=== PATIENT | female | born 1995 | race Caucasian/White ===

== ENCOUNTER → 2018-11-18 | Emergency (ER) | payer BC, OTHER ==
[~2018-11-18] VITALS: Ht 170.2 cm; Wt 96.6 kg
[~2018-11-18] MED LIST: AUGMENTIN 875-1 EACH PO; DOCUSATE SODIU100 MG PO; IBU800 MG PO; IRON325 M1 PO; NORCO 5-325 TA1 EACH PO
== END ==
LOC: ED 22:26
DX: O99.89 Other specified diseases and conditions complicating pregnancy, childbirth and the puerperium (principal); R10.2 Pelvic and perineal pain; Z79.899 Other long term (current) drug therapy
CPT/HCPCS: 72193; 74177; 80053; 81001; 83605; 83690; 85025; 87040; 99284-25; J1170; J2405; J7030; Q9967

== ENCOUNTER 2018-11-21 11:51 | Inpatient (IN) | payer BC, OTHER ==
[~2018-11-21] VITALS: Ht 170.2 cm; Wt 96.6 kg
--- NOTE | ~2018-11-21 | HP ---
[facility] [address], [place] [address] Draft ADMISSION DATE: 11/21/2018 CHIEF COMPLAINT: Uterine tenderness and malodorous discharge. HISTORY OF PRESENT ILLNESS: Ms. Ortiz is a pleasant 22-year-old, G3, P3-0-0-3, white female, who presented to my office following a visit to the ER. She delivered a viable female on 11/10/2018 in [place], [place]. and delivery were unremarkable per patient. She underwent tubal ligation the following day and reports having intraabdominal bleeding and the patient was taken back for exploratory laparotomy and evacuation of hemoperitoneum emergently in the middle of the following night. She states that she had approximately 1 liter of blood in the abdomen and the bleeding was corrected. She was then discharged home with further incident. The patient then continued to have fairly consistent abdominal pain. She had no lightheadedness, dizziness, or fevers. She called her OB, whose showroom sales assistant called her back and recommended to try and get heating pad to her abdomen. After continued improvement, the patient became frustrated and came to the [facility] ED. A CT was performed that showed a small to moderate amount of fluid, likely blood in the abdomen approximately [address] with contrast showed no active extravasation. In the ER, the hemoglobin was 12.9. The ER physician called and reviewed the case with me and reported that she had some mild uterine tenderness, but no leukocytosis and had a low-grade fever that resolved in the ER. The patient followed up with me the next day for further evaluation. In my office, the patient reports that she is afebrile. She reports that she has had new onset malodorous vaginal discharge. She reports "smells like itself." Her bleeding is scant. She continues to breast feed without difficulty. She denies lightheadedness or dizziness. She reports that her abdominal pain is 6 to 8/10 and nothing seems to make it better or worse. The pain is not improved with discharge medications, ibuprofen and Dana. CURRENT MEDICATIONS: 1. Dana 5/325 one tablet p.o. q.6 hours p.r.n. 2. Ibuprofen 800 mg t.i.d. p.r.n. pain. 3. Ferrous sulfate 325 mg daily. 4. Docusate. MEDICAL HISTORY: 1. Acute blood loss anemia. 2. Headaches. ALLERGIES: No known drug allergies. PATIENT NAME: Doorthy ORTIZ HISTORY AND PHYSICAL DATE OF : [birth year] REPORT #: [id number] PHYSICIAN: TANIA DAMON DO PCP: JAMES MORRIS DO REPORT IS CONFIDENTIAL AND NOT TO BE RELEASED WITHOUT AUTHORIZATION [facility] [address], [place] [address] Draft POLYSOMNOGRAPHY TECHNOLOGIST HISTORY: Currently sexually active. Using tubal for ligation. OB HISTORY: She is a G3, P3-0-0-3. SURGICAL HISTORY: tubal ligation with followup exploratory laparotomy for hemoperitoneum and correction of bleeding. FAMILY HISTORY: Grandmother with breast cancer in her elderly age. SOCIAL HISTORY: The patient is a nonsmoker and does not drink alcohol. No recreational or drug use. She denies history of STDs. REVIEW OF SYSTEMS: A complete review of systems was performed, negative except per HPI. PHYSICAL EXAMINATION: VITAL SIGNS: Height 67 inches, weight 216 pounds, BMI of 33.9. Temperature 98.6, pulse 106, blood pressure 124/62, respiratory rate 18, O2 saturation 98%. GENERAL: The patient is alert and cooperative, oriented, in no distress. She is here with her stepmother and , who is in good apparent health. SKIN: [place], warm, and dry. No acute rash on exposed skin. HEENT: Normocephalic and atraumatic. CHEST: Normal shape and expansion of apparent dyspnea. HEART: Regular rate and rhythm. LUNGS: Clear to auscultation bilaterally. ABDOMEN: Soft and nondistended. No hepatomegaly or splenomegaly. No obvious masses other than fundus. No abdominal hernia noted. The fundus is U minus 3, but exquisitely tender to the touch. No rebound or significant abdominal tenderness elsewhere in the abdomen. BACK: Normal range of motion. SPINE: No CVA tenderness. FEMALE GENITALIA: Normal external genitalia, labia, and vagina. The cervix was slightly open with dark malodorous lochia noted. The uterus is extremely tender to bimanual exam. The adnexa are nontender and no adnexal masses noted. The bladder is mildly tender. EXTREMITIES: No edema. PATIENT NAME: Dorothy ORTIZ HISTORY AND PHYSICAL DATE OF : [birth year] REPORT #: [id number] PHYSICIAN: TANIA DAMON DO PCP: JAMES MORRIS DO REPORT IS CONFIDENTIAL AND NOT TO BE RELEASED WITHOUT AUTHORIZATION [address] [address] [place] LABORATORY DATA: Reviewed labs and imaging from the ER visit on 11/18. Her hemoglobin was 12.9, platelets 209, WBCs 8.0. Urine was normal. CMP shows normal creatinine of 0.46. Normal liver enzymes. Lactic acid was 0.5. ASSESSMENT AND PLAN: endometritis. The patient with symptoms of endometritis diagnosed by malodorous discharge and exquisite uterine tenderness. She does not appear to be septic. We discussed inpatient versus outpatient management of endometritis and given severe uterine tenderness, I strongly recommend admission for IV antibiotics. The patient understands and agrees. We will continue IV antibiotics until 24 hours after the uterine tenderness has resolved. We reviewed multiple treatment regimens for endometriosis and will treat with clindamycin and gentamicin. We will treat pain with IV Dilaudid, ibuprofen, Dana, and Tylenol. The patient will start on clears and advance diet tomorrow if she is doing well. We will perform VTE prevention with daily Lovenox and SCDs. The patient received blood and urine cultures prior to antibiotic therapy. We will perform a CBC and CMP on admission and CBC in the a.m. Reviewed with the patient and family. All questions answered to the best my ability and to the patient's apparent satisfaction. Tania Damon DO JHEIDI/LIDA /[id number] Copies: ~ PATIENT NAME: Dorothy ORTIZ HISTORY AND PHYSICAL DATE OF : [birth year] REPORT #: [id number] PHYSICIAN: TANIA DAMON DO PCP: JAMES MORRIS DO REPORT IS CONFIDENTIAL AND NOT TO BE RELEASED WITHOUT AUTHORIZATION
[~2018-11-21 11:51] MED LIST changes: -AUGMENTIN 875-1 EACH PO; -IBU800 MG PO
--- NOTE | 2018-11-21 12:45 | NUR ---
PT ARRIVED FOR DIRECT ADMIT FROM DR. LAMBERT'S OFFICE. INTAKE ASSESSMENT DONE. PIV STARTED PER PROTOCOL. BRISK BLOOD RETURN NOTED WITH IV START. IV FLUIDS STARTED. MEDICATIONS GIVEN. PHARMACY CALLED TO NOTIFY PHARAMIST THAT PT IS BREAST FEEDING. PT REPORTS 7/10 PAIN. SEE MAR FOR MEDICACTION GIVEN. LAB TO BEDSIDE FOR LAB DRAW. PT RESTING IN BED. PT DEMONSTRATES USE OF CALL LIGHT. BED RAILS UP. FAMILY AT BEDSIDE CARING FOR INFANT WHO IS ALSO AT BEDSIDE. BROTH, JUICE AND JELLO PROVIDED. NO ADDITIONAL REQUESTS OR COMPLAINTS AT THIS TIME.
--- NOTE | 2018-11-21 15:18 | NUR ---
SPOKE TO MILVIA NUNEZ, KONRAD MERCADO RN, AUGUSTINE YAÑEZ RN AND JULES ABDULLAHI REGARDING POLICIES AND [facility] PRACTICE REGARDING PT AND HER 3 WEEK OLD BABY STAYING IN ROOM. THEN DISCUSSED WITH PT HOSPITAL POLICY OF ANOTHER ADULT STAYING IN ROOM AT ALL TIMES WITH INFANT. TOLD IF THE ADULT LEAVES THE BABY NEEDS TO LEAVE WITH THEM. ALSO DISCUSSED USE OF BASSINET FROM FB AND HOSPITAL NOT BEING LIABLE. TALKED ABOUT THE HOSPITAL TAKING CARE OF SICK PATIENTS AND THE RISK OF BABY BEING EXPOSED TO "GERMS". PT STATED THAT BABY IS EXCLUSIVLY BREAST FED AND WANTS TO KEEP HER IN THE HOSPITAL. INFORMED THAT WE HAVE A FORM FOR HER TO SIGN REITERATING OUR CONVERSATION. PT AND MOTHER IN LAW VERBALIZED UNDERSTANDING.
--- NOTE | 2018-11-21 15:59 | NUR ---
EXPLAINED AGAIN THE RISKS OF HAVING THE BABY IN THE HOSPITAL AND HAD THE PT AND HER SIGN THE FORM. PLACED ON CHART. PT DECLINED A COPY.
--- NOTE | 2018-11-21 16:50 | NUR ---
THIS RN TO ROOM TO CHECK ON PT. PT REPORTS 4/10 PAIN AND DENIES NEED FOR ADDITIONAL MEDICATION AT THIS TIME. WATER REFILLED, NEW JUICE PROVIDED. NO ADDITIONAL REQUESTS OR COMPLAINTS AT THIS TIME. CALL LIGHT WITHIN REACH.
--- NOTE | 2018-11-21 17:34 | NUR ---
AFTERNOON ASSESSMENT DUE. PT RESTING IN BED WITH BABY IN ARMS. PT REPORTS 5/10 PAIN THAT "IS LIKE CONTRACTIONS." SEE MAR FOR MEDICATION GIVEN. PT UP TO RESTROOM, VOIDS 900ML WITHOUT ISSUE. PT REPORTS SHE STILL HAS OCCATIONAL BLEEDING, MAY PAD IN PLACE. SCD'S APPLIED. ASSESSMENT DONE. SURGICAL SITE C/D/I, EDGES APROXIMATED. WARM PACK PROVIDED FOR PTS ABDOMEN, EDUCATION DONE REGARDING KEEPING WARM PACK AWAY FROM BABY. PT VERBALIZES UNDERSTANDING. BABY IN FATHERS AMRS. WATER, JELLO, JUICE AND BROTH PROVIDED. NO ADDITIONAL REQUESTS OR COMPLAINTS AT THIS TIME. BED RAILS UP. CALL LIGHT WITHIN REACH.
--- NOTE | 2018-11-21 18:25 | NUR ---
PT DIRECT ADMIT TODAY FOR UTERIN INFECTION. PT DELIVERED NEW BABY ON 11/10/18 AND CONTINUES TO BREAST FEED, PHARAMCY AWARE. PRN PAIN MEDICATIONS GIVEN TODAY FOR 4-10 UTERIN PAIN. PT HAS SMALL AMOUNT OF BLEEDING SINCE DELIVERY, MAY PAD IN PLACE. PT TOLEARTING CLEAR LIQUID DIET, DENIES NAUSEA. VOIDING QUANTITY SUFFICIENT. PT USES CALL LIGHT APPROPRIATLY.
--- NOTE | 2018-11-21 18:31 | NUR ---
THIS RN TO ROOM TO CHECK ON PT. PT REPORTS 0/10 PAIN "UNTIL IT CRAMPS" WHEN "IT COMES ON PRETTY GOOD BUT GOES AWAY." PT STATES THE HEAT PACK IS "REALLY HELPING." NO ADDITIONAL REQUESTS OR COMPLAINTS. BED RAILS UP. CALL LIGHT WITHIN REACH. AT BEDSIDE.
--- NOTE | 2018-11-21 19:15 | NUR ---
RECEIVED REPORT FROM DAY SHIFT RN. PATIENT IS RESTING IN BED BREAS FEEDING BABY AT THIS TIME. PATIENT DENIES ANY NEEDS. CALL LIGHT IN REACH.
--- NOTE | 2018-11-21 22:15 | NUR ---
PATIENT ASSESMENT COMPLETED. PATIENTS ABD IS TENDER AND SOFT. PATIENT RATES PAIN AT A 7/10. PRN PAIN MEDICATION GIVEN PER ORDER. PATIENTS EVENING MEDICATIONS GIVEN PER ORDER. IV INFUSING. PATIENT IS RESTING IN BED BABY AT THIS TIME. PATIENT DENIES ANY NEEDS. ICE WATER REFILLED FOR PAITENT AD . AT THE BEDSIDE AND ATTENTIVE TO PATIENT AND BABY. CALL LIGHT IN REACH.
--- NOTE | 2018-11-21 23:48 | NUR ---
PATIENTS PAIN REEVALUATED. PATIENT RATES PAIN AT A 3/10. PATIENT DENIES THE NEED FOR PAIN MEDICATION AT THIS TIME. NO NEEDS NOTED. CALL LIGHT IN REACH.
--- NOTE | 2018-11-22 02:36 | NUR ---
PATIENTS VITALS TAKEN AND RECORDED. INTAKE AND OUPTUT RECORDED. PATIENT RATES PAIN AT A 4/10. PRN MOTRIN GIVEN PER ORDER. PATIENT DENIES ANY FURTHER NEEDS. CALL LIGHT IN REACH.
--- NOTE | 2018-11-22 04:44 | NUR ---
PATIENT IS RESTING IN BED WITH EYES CLOSED. RR 18. CALL LIGHT IN REACH.
--- NOTE | 2018-11-22 04:52 | NUR ---
PATIENT RESTED WELL TTHROUGHOUT THE SHIFT. PATIENT IS ON A CLEAR DIET, TOLERATING IT WELL, AND NO COMPLAINTS OF NAUSEA. PATIENT HAS SCDS IN PLACE. INDEPENDENT IN THE ROOM. PATIENT RECEIVED PRN PAIN MEDICATION X2. PATIENTS ABD IS TENDER BUT SOFT. PATIENT HAS A PERIPAD IN PLACE, SMALL AMOUNT OF BLOOD ON PAD NOTED. PATIENT HAS BEEN PASSING GAS. PATIENT HAS BABY IN THE ROOM. PRESENT AND ATTENTIVE TO PATIENT AND 1 MONTH OLD BABY. PATIENT IS AAOX3 AND USE CALL LIGHT APPROPRAITELY. URINE OUPUT QS.
--- NOTE | 2018-11-22 06:45 | NUR ---
PATIENTS MORNING MEDCATIONS GIVEN PER ORDER. PATIENT RATES PAIN AT A 6/10. PATIENT GIVEN PRN PAIN MEDICATION PER ORDER. PATIENT UP TO THE RESTROOM. PATIENT WAS ABLE TO VOID. PATIENT IS RESTING IN BED SCDS IN PLACE. PATIENT IS BF BABY AT THIS TIME. PATIENT DENIES ANY FURTHER NEEDS. CATERING TRUCK DRIVER IN ROOM. CALL LIGHT IN REACH. ICE WATER REFILLED.
--- NOTE | 2018-11-22 07:25 | NUR ---
REPORT RECEIVED FROM ENRIQUE BURDEN. PT RESTING WITH EYES CLOSED, BABY IN ARMS, AT BEDSIDE. BED RAILS UP. CALL LIGHT WITHIN REACH.
--- NOTE | 2018-11-22 08:50 | NUR ---
MORNING ASSESSMENT AND MEDICATIONS DUE. THIS RN TO BEDSIDE. PT AWAKE IN BED PLAYING ON PHONE. PT REPORTS 5/10 PAIN THAT "COMES AND GOES." SEE MAR FOR MEDICATION GIVEN. ASSESSMENT DONE. PT REPORTS NO BM'S FOR 2 DAYS NOW. BISACODYL SUPP. OFFERED, PT REFUESES. ABDOMEN TENDER, HYPOACTIVE BOWEL TONES. PT REQUESTS "REAL FOOD." EDUCATION DONE R/T CLEAR LIQUID DIET. PT VERBALIZES UNDERSTANDING AND IS WILLING TO WAIT TO TALK WITH MD. BED RAILS UP, CALL LIGHT WITHIN REACH. AT BEDSIDE.
--- NOTE | 2018-11-22 10:23 | NUR ---
THIS RN TO ROOM TO CHECK ON PT. PT WATCHING TV AND PLAYING ON PHONE. PT REPORTS 4/10 PAIN THAT IS TOLEARABLE AND DENIES NEED FOR ADDITIONAL PAIN MEDICATION. DIET UP GRADED TO FULL LIQUID, ENSURE MILK[place]KE PROVIDED. PT TOELARTING WELL. BED RAILS UP. CALL LIGHT WITHIN REACH. AT BEDSIDE.
--- NOTE | 2018-11-22 12:03 | NUR ---
NOON ASSESSMENT DUE. THIS RN TO BEDSIDE. PT REPORTS 4/10 PAIN AND DENIES NEED FOR PAIN MEDICATION AT THIS TIME. PT EATING SHERBERT BUT REFUSES OTHER FOOD FROM FULL LIQUID TRY STATING "I JUST WANT YI FRIES AND WINGS INSTEAD." ALTERNATIVE FOODS OFFERED TO PT. PT ACCEPTS APPLESAUSE AND CHOCOLATE MILK. NUTRITION EDUCATION DONE WITH PT. PT VOIDING QUANTITY SUFFICIENT. PT REPORTS DECREASED RED DRAINAGE FROM UTERUS STATING "ALL LAST NIGHT I'VE ONLY HAD JUST A DROP ON MY PAD." PT DENIES ADDITIONAL REQUESTS OR COMPLAINTS. BED RAILS UP. CALL LIGHT WITHIN REACH. FAMILY AT BEDSIDE.
--- NOTE | 2018-11-22 13:08 | NUR ---
THIS RN INFORMED BY AIRLINE OPERATIONS AGENT THAT PT REQUESTS PAIN MEDICAITON. THIS RN TO ROOM. PT FINISHED WITH SHOWER. PT BACK TO BED. PT REPORTS 6/10 PAIN. SEE MAR FOR MEDICAITON GIVEN. IV ABX STARTED. IV FLUIDS RESUMED. PT RESTING IN BED. NO ADDITIONAL REQUESTS OR COMPLAINTS. CALL LIGHT WITHIN REACH. AT BEDSIDE WITH BABY.
--- NOTE | 2018-11-22 15:10 | NUR ---
THIS RN TO ROOM TO CHECK ON PT. PT RESTING IN BED, WORKING WITH BABY. PT EATING PUDDING AND CRACKERS, UNSURE WHAT TO ORDER FOR DINNER AT THIS TIME. PT REPORTS 4/10 PAIN AND DENIES NEED FOR ADDITIONAL PAIN MEDICATION AT THIS TIME. BED RAILS UP. CALL LIGHT WITHIN REACH.
--- NOTE | 2018-11-22 17:35 | NUR ---
AFTERNOON ASSESSMENT DUE. THIS RN TO BEDSIDE. PT RESTING IN BED. BABY WITH DAD, GONE TO GET DINNER. PT REPORTS 5/10 PAIN. SEE MAR FOR MEDICATION GIVEN. ASSESSMENT DONE. BOWEL TONES NOTED. DINNER ORDER PLACED FOR PT. PT DENIES ADDITIONAL REQUESTS OR COMPLAINTS. CALL LIGHT WITHIN REACH. WATER AND APPLE JUICE PROVIDED.
--- NOTE | 2018-11-22 18:40 | NUR ---
THIS RN TO ROOM TO CHECK ON PT. PT REPORTS 7/10 PAIN. SEE MAR FOR MEDICAITON GIVEN. MD TO ROOM FOR ROUNDS. PT REQUESTS BREAST PUMP, PROVIDED REQUESTED PT EATING DINNER. NO ADDITIONAL REQUESTS OR COMPLAINTS AT THIS TIME.
--- NOTE | 2018-11-22 19:02 | NUR ---
PT HERE FUR UTERIN INFECTION. PAIN 4-04/19 TODAY, PRN PAIN MEDICATIONS GIVEN. PT UP TO SHOWER TODAY. LESS DRAINAGE NOTED ON MAY PAD. PT REPORTS "FEELING BETTER TODAY." DENIES NAUSEA. DIET ADVANCED TO REGULAR. PRN MILK OF MAGNESIUM GIVEN. ENCOURAGE PT TO TAKE SUPPOSITORY, HAS DECLINED THIS SHIFT. LR AT 75ML/HR INFUSING. IV ABX GIVEN. PT USES CALL LIGHT APPROPRIATLY.
--- NOTE | 2018-11-22 19:10 | NUR ---
RECEIVED REPORT FROM DAY SHIFT RN. DISCUSSED BOWEL CARE WITH PATIENT. PATIENT IS AGGREABLE TO A SUPPOSITORY. PATIENT DENIES ANY PAIN. PATIENT DENIES ANY NEEDS. CALL LIGHT IN REACH.
--- NOTE | 2018-11-22 19:25 | NUR ---
CHARGE ROUNDING DONE WITH DAY SHIFT CHARGE AND ANKUR RN. PRIMARY RN IN ROOM FOR REPORT.
--- NOTE | 2018-11-22 21:30 | NUR ---
PATIENT ASSESMENT COMPLETED. PATIENT RATES PAIN AT A 2/10. PATIENT DENIES ANY NEED FOR PAIN MEDICATION AT THIS TIME. PATIENTS ABD IS TENDER AND SOFT. PATIENT STATED "IT IS LESS SORE TONIGHT". PATIENTS EVENING MEDICATIONS GIVEN PER ORDER. PATIENT GIVEN SUPPOSITORY PER ORDER. PATIENT EDUCATED TO ALERT STAFF WHEN SHE HAS A BM. PATIENT VERBALIZES UNDERSTANDING. PATIENT DENIES ANY NEEDS AT THIS TIME. CALL LIGHT IN REACH.
--- NOTE | 2018-11-22 22:40 | NUR ---
PATIENT ALERTED STAFF THAT SHE HAD A BM. PATIENTS BM WAS LARGE AND LOOSE. PATIENT HAD NO PAIN WITH BM. PATIENT STATED "IT TOOK FOR EVER TO COME OUT AND JUST KEPT COMING". PATIENT ALSO STATED "I FEEL SOME RELIEF IN PRESSURE". PATIENT RATES PAIN AT A 1/10. PATIENT DENIES ANY NEEDS. SCDS IN PLACE. CALL LIGHT IN REACH.
--- NOTE | 2018-11-23 00:38 | NUR ---
PATIENT IS RESTING IN BED WITH BABY. PATIENT APPEARS TO BE SLEEPING. RR 18. CALL LIGHT IN REACH. ASLEP ON COUCH.
--- NOTE | 2018-11-23 02:45 | NUR ---
ASSEMENT COMPLETED. PATIENT DENIES ANY PAIN. PATIENT DENIES ANY NEEDS. CALL LIGHT IN REACH.
--- NOTE | 2018-11-23 03:55 | NUR ---
PATIENT CALLED AND REQUESTED PAIN MEDICATION. PATIENT RATES PAIN AT AN 8/10. PATIENT GIVEN PRN PAIN MEDICATION. PATIENT HAD INCREASED PAIN AFTER AMBULATION AND USING THE RESTROOM. PATIENT ALSO GIVEN WARM PACK AND PLACED ON LOWER ABD. PATIENT IS CURRENTLY RESTING IN BED AND BF BABY. IS ON THE COUCH. NO FURTHER NEEDS NOTED. CALL LIGHT IN REACH.
--- NOTE | 2018-11-23 04:51 | NUR ---
PATIENT RESTED WELL THROUGHTOUT THE SHIFT. PATIENT IS ON A REGULAR DIET, TOLERATING WELL, NO COMPLAINTS OF NAUSEA. PATIENT HAS SCDS IN USE WHILE IN BED. PATIENT IS INDEPENDENT IN THE ROOM. PATIENTS OUPUT IS QS. PATIENT RECEIVED PRN PAIN MEDICATION X1. PATIENT HAS BEEN PROVIDED WARM PACKS FOR LOWER ABD, PRN. PATIENT HAD X1 LARGE, LOOSE BM. PATIENT IS AAO X3.
--- NOTE | 2018-11-23 05:50 | NUR ---
PATIENTS MORNING MEDICATIONS GIVEN PER ORDER. PATIENT RATES PAIN AT A 2/10. PATIENT REQUESTED MOTRIN TO "KEEP UP ON HER PAIN". PATIENT GIVEN PRN MOTRIN PER ORDER. PATIENT DENIES ANY FURTHER NEEDS AT THIS TIME. CALL LIGHT IN REACH. VITALS TAKEN AND RECORDED. INTAKE AND OUPUT RECORDED.
--- NOTE | 2018-11-23 07:28 | NUR ---
PT STATED TO BE SLEEPING AFTER PAIN MEDICATIONS AT 0400 THIS MORNING. BABY AND IN ROOM.
--- NOTE | 2018-11-23 07:56 | NUR ---
PATIENT IN BED. PATIENT'S BREAKFAST ORDERED.
--- NOTE | 2018-11-23 08:05 | NUR ---
TALKED TO DR LAMBERT IN [place] ABOUT PT STATING SHE WAS PAINFUL LAST NIGHT. CHANGED MOTRIN TO SCHEDULED. TALKED TO PT REGARDING THIS. INFORMED HER SHE COULD HAVE NEXT PILL AT 0930. PT STATED SHE WAS GOOD UNTIL THEN. CURRENTLY NURSING BABY, FATHER ON COUCH. BREAKFAST ORDERED. SL. NO FURTHER CONCERNS.
--- NOTE | 2018-11-23 10:14 | NUR ---
PATIENT IN BED WATCHING TV. AND BABY IN ROOM. VITAL SIGNS AND I&O DONE. LOW BLOOD PRESSURE. RN NOTIFIED. ICE WATER GIVEN. CALL LIGHT WITHIN REACH. NO OTHER NEEDS AT THIS TIME
--- NOTE | 2018-11-23 11:40 | NUR ---
DR LAMBERT IN TO REMOVE STITCHES FROM PRIOR SURGERY. PT TOLERATED WELL AND DENIES CONCERNS.
--- NOTE | 2018-11-23 13:24 | NUR ---
PT GIVEN MORTRIN FOR 3/10 PAIN. ATE MOST OF LUNCH AND IS DRINKING A BIG BOTTLE OF WATER. STARTED AB AND ADVISED TO CALL WHEN DONE TO REMOVE IVF. PT DENIES CONCERNS.
--- NOTE | 2018-11-23 13:57 | NUR ---
PATIENT IN BED CARRYING HER BABY. IN ROOM/ VITAL SIGNS AND I&O DONE. LOW BLOOD PRESSURE. RN NOTIFIED. CALL LIGHT WITHIN REACH. NO OTHER NEEDS AT THIS TIME
--- NOTE | 2018-11-23 18:08 | NUR ---
PATIENT IN BED. AND BABY IN ROOM. VITAL SIGNS AND I&O DONE. PATIENT DID NOT VOID DURING THIS PERIOD. RN NOTIFIED. CALL LIGHT WITHIN REACH. NO OTHER NEEDS AT THIS TIME
--- NOTE | 2018-11-23 19:22 | NUR ---
CHARGE NURSE REPORT RECEIVED FROM ANA HENDERSON IN BED, WITH BABY, AT BEDSIDE. NO NEEDS AT THIS TIME.
--- NOTE | 2018-11-23 19:45 | NUR ---
SHIFT REPORT RECEIVED FROM DAYSHIFT ENRIQUE ZUNIGA. PT AWAKE RESTING IN BED, RR EVEN AND UNLABORED. DENIES NEEDS AT THIS TIME. CALL LIGHT IN REACH.
--- NOTE | 2018-11-23 21:17 | NUR ---
VITALS AND I&OS DONE AND CHARTED. BEDSIDE TABLE AND CALL LIGHT IN REACH.
--- NOTE | 2018-11-23 22:30 | NUR ---
ASSESSMENT COMPLETE, SCHEDULED IV ABX INFUSING (SEE EMAR). IV SITE PATENT, FLUSHES WELL. PT RATES PAIN 3/10 AT THIS TIME, DESCRIBES "TOLERABLE". PT DENIES SOB AND DYSPNEA. NO FURTHER NEEDS NOTED, AND 3 WEEK OLD BABY IN ROOM. CALL LIGHT IN REACH.
--- NOTE | 2018-11-23 23:10 | NUR ---
PT REPORTS PAIN IS INCREASING, RATES PAIN 4-5/10. 1 NORCO ADMINISTERED PER PT REQUEST. CALL LIGHT IN REACH.
--- NOTE | 2018-11-24 00:08 | NUR ---
PT RESTING IN BED, CURRENTLY AWAKE WATCHING TELEVISION. IN ROOM WITH PT. FRESH WATER GIVEN PER PT REQUEST TO PT AND . NO ADDITIONAL NEEDS, CALL LIGHT IN REACH.
--- NOTE | 2018-11-24 03:13 | NUR ---
ASSESSMENT COMPLETE. NO NEW CONCERNS. PT A/OX4, WHEN ASKED ABOUT PAIN, PT STATES, "IT'S OKAY". PT APPEARS COMFORTABLE, RR EVEN AND UNLABORED. INCISION SITE OPEN TO AIR, WELL APPROXIMATED. WHEN ASKED ABOUT VAGINAL SPOTTING, PT STATES, "I'M STILL JUST SPOTTING, IT'S THE SAME IT WAS BEFORE". PT DENIES ADDITIONAL NEEDS, CALL LIGHT IN REACH.
--- NOTE | 2018-11-24 05:51 | NUR ---
NOTIFIED BY PROCESSING TECH JANUARY, PT HAD 100.[address] LAMBERT STANDING AT NURSE'S STATION AND MADE AWARE, OKAY TO GIVE PRN NORCO PER PT REQUEST FOR 7/10 PAIN. NO NEW ORDERS, CONTINUE TO MONITOR AND NOTIFY DR LAMBERT IF TEMPERATURE CONTINUES TO INCREASE. THIS RN IN ROOM TO ASSESS PT, PT STATES, "I WAS COLD EARLIER AND HAD SOME CHILLS. I PUT ON A BLANKET AND I FELT BETTER". EXCESS BLANKETS REMOVED, WILL CONTINUE TO MONITOR. CALL LIGHT IN REACH.
--- NOTE | 2018-11-24 06:45 | NUR ---
RECHECKS PT'S TEMPERATURE. RESULT 99.4. 0655 TEMPERATURE RESULT OF 100.6. VINER OPERATOR CYLINDRICAL MIXERENRIQUE PASCUAL AND DAY SHIFT ENRIQUE JUAREZ BOTH AWARE.
--- NOTE | 2018-11-24 07:00 | NUR ---
PT A/OX4, VSS, LOW GRADE TEMPERATURE NOTED, MD AWARE. PAIN CONTROLLED WITH SCHEDULED AND PRN PAIN MEDICATIONS. PT ON REGULAR, NO NAUSEA THIS SHIFT, BOWEL TONES ACTIVE. PT AMBULATES SBA. PT SALINE LOCKED, SCHEDULED IV ABX.
--- NOTE | 2018-11-24 08:00 | NUR ---
RECEIVED REPORT AT 0700, FOUND PT IN BED STATING THAT SHE IS NOT FEELING WELL. PT HAD A TEMP OF 100.6. MD LAMBERT WILL COME IN IN A BIT. PT DOES NOT FEEL GOOD ENOUGH TO GO HOME.
--- NOTE | 2018-11-24 10:16 | NUR ---
PATIENT SITTING UP IN BED, AND BABY IN ROOM. FRESH WATER GIVEN. CALL LIGHT IN REACH. NO FURTHER NEEDS AT THIS TIME.
--- NOTE | 2018-11-24 10:30 | NUR ---
SBP WAS 93. MD LAMBERT IS AWARE. PT DENIES PAIN AT THIS TIME. ALL LOBES ARE CLEAR, ABD SOUNDS ARE PRESENT, ABD IS SOFT TO TOUCH WITH BOTH LOWER QUADRANTS TENDER TO TOUCH. PT STILL HAS MILD LOCHEA PRESENT, NO ODOR NOTED. WILL CONTINUE TO MONITOR.
--- NOTE | 2018-11-24 12:10 | NUR ---
PT AT THIS TIME HAS NOT NEEDS OR CONCERNS. PAIN IS 0/10.
--- NOTE | 2018-11-24 14:21 | NUR ---
PATIENT IN BED BREAST FEEDING BABY, IN ROOM. FRESH WATER GIVEN. CALL LIGHT IN REACH. NO FURTHER NEEDS AT THIS TIME.
--- NOTE | 2018-11-24 17:58 | NUR ---
PT HAS REMAINED AFEBRILE SINCE SCHEDULED MOTRIN WAS GIVEN THIS MORNING. PT OVERALL SEEMS TO FEEL A BIT BETTER. URINE IS CLEAR/YELLOW. ABD IS SOFT TO TOUCH WITH BOTH LOWER QUADRANTS TENDER TO TOUCH. ABD SOUNDS ARE PRESENT. PAIN HAS BEEN A 3/10 MOST OF THIS SHIFT WHICH IS TOLERABLE FOR THIS PT. NO NEW CONCERNS HAVE COME UP SO FAR THIS SHIFT. WILL CONTINUE TO MONITOR.
--- NOTE | 2018-11-24 18:04 | NUR ---
PATIENT SITTING UP IN BED EATING DINNER, AND BABY IN ROOM. FRESH WATER GIVEN. CALL LIGHT IN REACH. NO FURTHER NEEDS AT THIS TIME.
--- NOTE | 2018-11-24 19:15 | NUR ---
SHIFT REPORT RECEIVED FROM DAYSNJFT ENRIQUE JUAREZ. PT RESTING IN BED, EYES CLOSED, RR EVEN AND UNLABORED. IV ABX INFUSING, SITE WNL. AND BABY IN ROOM, CALL LIGHT IN REACH.
--- NOTE | 2018-11-24 21:09 | NUR ---
VITALS DONE AND CHARTED.
--- NOTE | 2018-11-24 21:18 | NUR ---
PT CALLED D/T BEEPING IV PUMP. ABX COMPLETE AND IV IS SL AT THIS TIME. PT WOULD LIKE TO SHOWER. WILL NOTIFY COMBINATION PRESSER AND PRIMARY RN.
--- NOTE | 2018-11-24 21:37 | NUR ---
I WRAPPED PT'S IV SO SHE COULD TAKE A SHOWER. TOWELS PUT IN BATHROOM. SHE NEEDS NOTHING MORE AT THIS TIME.
--- NOTE | 2018-11-24 22:15 | NUR ---
ASSESSMENT COMPLETE. IV ABX COMPLETE, IV SITE WNL. SITE FLUSHED (SEE EMAR). PT A/OX4, DESCRIBES PAIN TOLERABLE AT THIS TIME. INCISION TO ABDOMEN IS CDI, WELL APPROXIMATED. BABY AND IN ROOM. NO FURTHER NEEDS, CALL LIGHT IN REACH.
--- NOTE | 2018-11-24 22:30 | NUR ---
PT REPORTS THAT IV CATHETER "PULLED OUT A LITTLE". THIS RN IN ROOM TO ASSESS PT. IV CATHETER PATENT, BLOOD RETURN NOTED. DRESSING REINFORCED WITH TAPE. EDUCATION PROVIDED REGARDING SIGNS OF LEAKING AND INFILTRATION, PT VERBALIZED UNDERSTANDING. NO FURTHER NEEDS.
--- NOTE | 2018-11-24 23:00 | NUR ---
PT REPORTS 5/10 PAIN IN ABDOMEN, 1 NORCO PROVIDED. PT DENIES FURTHER NEEDS, CALL LIGHT IN REACH.
--- NOTE | 2018-11-24 23:30 | NUR ---
MATERNITY GOWN PROVIDED PER PT REQUEST. FRESH WATER AT BEDSIDE. PT DENIES FURTHER NEEDS. CALL LIGHT IN REACH.
--- NOTE | 2018-11-25 01:36 | NUR ---
SCHEDULED IV ABX INFUSING. PT HAD CONCERNS EARLIER THAT IV CATHETER HAD "PULLED OUT A LITTLE". THIS RN ASSESSED IV SITE EARLIER IN SHIFT AROUND 0 (SEE NOTE). PACK WORKER SUPERVISOR YENY ALSO IN ROOM TO ASSESS IV SITE. AGREED THAT IV SITE WNL. PT DENIES FURTHER NEEDS, CALL LIGHT IN REACH.
--- NOTE | 2018-11-25 03:14 | NUR ---
PT RESTING IN BED, EYES CLOSED, RR EVEN AND UNLABORED. IV ABX INFUSING PER MD ORDERS, SITE WNL. CALL LIGHT IN REACH.
--- NOTE | 2018-11-25 04:50 | NUR ---
ASSESSMENT COMPLETE. PT A/OX4. PT AFEBRILE, ORAL TEMP 98.3. PT REPORTS INCREASING PAIN IN ABDOMEN. PT STATES, "I FEEL LIKE MY ABDOMEN IS FULL OF AIR". PT REQUESTING PAIN MEDICATION. WHEN THIS RN BROUGHT IN PRN [place] AFTER COMPUTER SHUTDOWN, PT CHANGED MIND AND DENIED NEED FOR PAIN MEDICATION. CALL LIGHT IN REACH. IV ABX INFUSING, SITE WNL. CALL LIGHT IN REACH.
--- NOTE | 2018-11-25 06:34 | NUR ---
VITALS AND i&OS DONE AND CHARTED. BEDSIDE TABLE AND CALL LIGHT IN REACH. INFORMED RN LAURA OF HIGH TEMP. PT NEEDS NOTHING MORE AT THIS TIME.
--- NOTE | 2018-11-25 07:00 | NUR ---
INFORMED BY CALISTA LEE OF PT'S ORAL TEMP OF 100.3. THIS RN IN ROOM TO ASSESS PT. PT FOUND CRYING AFTER RETURNING FROM BATHROOM. PT STATES, "THE PAIN IS BACK TO THE NORMAL PAIN I HAVE BEEN HAVING". PT RATES PAIN 04/19. 1 NORCO GIVEN PER PT REQUEST. DISCUSSED WITH PRODUCTION COOKENRIQUE SAINI AND DAYSHIFT ENRIQUE JUAREZ WHETHER NECESSARY TO CALL DR LAMBERT REGARDING TEMPERATURE. BOTH PRODUCTION COOKENRIQUE SAINI AND DAYSHIFT ENRIQUE JUAREZ FEEL IT IS NOT NECESSSARY DUE TO TEMPERATURE RESULT AND THAT MD WILL COME AND SEE PT LATER IN THE MORNING. PER ENRIQUE JUAREZ, SHE WILL CALL DR LAMBRET IF HE DOES NOT SEE PT BY APPROX [phone] AND MAKE HIM AWARE OF TEMPERATURE.
--- NOTE | 2018-11-25 07:30 | NUR ---
PATIENT IN WALKING IN HALLWAY ONE LAP.
--- NOTE | 2018-11-25 07:32 | NUR ---
PATIENT RESTING IN BED. PATIENT'S BREAKFAST ORDERED
--- NOTE | 2018-11-25 08:00 | NUR ---
RECEIVED REPORT AT 0700, FOUND PT IN BED WITH PAIN 04/19. NORCO WAS GIVEN AT THAT TIME PER ORDER. PT ALSO WALKED THE HALLWAY AND WILL DO SO AGAIN. PT HAD A TEMP OF 100.3 F THIS MORNING. MD LAMBERT IS AWARE. WILL CONTINUE TO MONITOR.
--- NOTE | 2018-11-25 08:19 | NUR ---
PT HAS AN OKAY NIGHT. PAIN WELL CONTROLLED WITH PRN NORCO. PT VERBALIZED INCREASED PAIN AT SECOND ASSESSMENT AROUND 0500. PT DESCRIBED PAIN IF SHE WAS "FILLED WITH AIR". AT 0600 VS, PT HAD TEMP OF 100.3. IV SITE WNL, PT RECEIVING IV ABX. PT SBA, AMBULATED IN HALLWAY X1. BOWEL TONES ACTIVE, NO NAUSEA.
--- NOTE | 2018-11-25 09:24 | NUR ---
PATIENT RESTING IN BED. AND BABY IN ROOM. VITAL SIGNS AND I&O DONE. CALL LIGHT WITHIN REACH. NO OTHER NEEDS AT THIS TIME
--- NOTE | 2018-11-25 10:00 | NUR ---
V/S ARE WDL, PT IS WALKING THE HALLWAY AGAIN. PAIN IS MUCH LESS STATED BY PT. WILL CONTINUE TO MONITOR.
--- NOTE | 2018-11-25 10:11 | NUR ---
CHART REVIEWED AND SPOKE WITH STAFF. PATIENT IS INDEPENDENT AND HAS NO CASE MANAGEMENT NEEDS FOR DISCHARGE AT THIS TIME. WILL FOLLOW NEEDED.
--- NOTE | 2018-11-25 13:00 | NUR ---
PT HAS PAIN 10/20. PT IS FEELING BETTER. NO NEW CONCERNS NOTED AT THIS TIME.
--- NOTE | 2018-11-25 13:26 | NUR ---
PATIENT SITTING UP IN BED. AND BABY IN ROOM. RN IN ROOM. VITAL SIGNS AND I&O DONE. CALL LIGHT WITHIN REACH. NO OTHER NEEDS AT THIS TIME
--- NOTE | 2018-11-25 17:10 | NUR ---
PATIENT SITTING UP IN BED. , BABY AND FRIEND IN ROOM. VITAL SIGNS AND I&O DONE. ICE WATER GIVEN. CALL LIGHT WITHIN REACH. NO OTHER NEEDS AT THIS TIME
--- NOTE | 2018-11-25 18:06 | NUR ---
PT WALKED VERY FREQUENTLY TODAY, ALL V/ ARE WDL, PAIN IS MOSTLY 0/10. ABD SOUNDS ARE PRESENT. PT WILL TAKE A SUPPOSITORY LATER THIS EVENING. PT DID VERY WELL OVERALL TODAY. NO NEW CONCERNS NOTED.
--- NOTE | 2018-11-25 20:48 | NUR ---
LUNGS SOUND CLEAR, HR WNL. PT DESCRIBING SORENESS IN ABDOMEN RATING BETWEEN 1-3. ABD NON TENDER ON TOUCH. BM MEDUIM SOFT BROWN IN COLOR. AOX3. ABLE TO COMMUNICATE NEEDS.
--- NOTE | 2018-11-25 22:02 | NUR ---
PULMONOLOGY PHYSICIAN ROUNDING NOTE. PT SITTING UP IN BED WITH BABY ON CHEST, AT BEDSIDE PLAYING CARDS WITH PT. NEEDS DENIED AT THIS TIME. CALL LIGHT IN REACH.
--- NOTE | 2018-11-25 23:07 | NUR ---
PT RESTING IN BED WITH EYES CLSOED. NO SIGNS OF DISCOMFORT OR DISTRESS. CALL LIGHT IN REACH. FAMILY AT BED SIDE.
--- NOTE | 2018-11-26 01:30 | NUR ---
RESTING, EYES CLOSED, NO S/SX DISTRESS
--- NOTE | 2018-11-26 04:45 | NUR ---
PT ABLE TO REST DURRIGN SHIFT. BM WITHOUT SUPPOSITORY. VS WNL. TEMP WNL. NO COMPLAINT OF PAIN REPORTED MORE SORENESS RATHER THAN PAIN. PT , NO SINGS OF VAGINAL DISCHARGE OR LOCHIA. PT UP TO RESTROOM INDEPENDENTLY.
--- NOTE | 2018-11-26 08:00 | NUR ---
RECEIVED REPORT AT 0700, FOUND PT IN BED AWAKE. PT HAD NO FEVER LAST NIGHT AND PAIN WAS WELL CONTROLLED. ALL LOBES ARE CLEAR, ABD SOUNDS ARE PRESENT, ABD IS SOFT TO TOUCH, NO EDEMA NOTED. IV INFILTRATED AND PER MD LAMBERT NO MORE IV ABX ARE TO BE INFUSED. IV SITE WILL BE D/C. NO NEW CONCERNS NOTED SO FAR.
[2018-11-26] MEDS ORDERED: IBU800 MG PO (09:52)
[2018-11-26] MEDS ORDERED: AUGMENTIN 875-1 EACH PO (09:53)
--- NOTE | 2018-11-26 10:33 | NUR ---
VITALS TAKEN BY JESUS MASSEY.
== END 2018-11-26 10:55 | disposition home or self-care (01) | DRG 776 ==
LOC: MS 11:51
PROVIDERS: ADMIT Obstetrics & Gynecology
DX: O86.12 Endometritis following delivery (principal); D62 Acute posthemorrhagic anemia; O90.81 Anemia of the puerperium; O99.215 Obesity complicating the puerperium; E66.9 Obesity, unspecified; O86.81 Puerperal septic thrombophlebitis
CPT/HCPCS: 36415; 74177; 80053; 80170; 82565; 83605; 84520; 85025; 87040; J1170; J1580; J1650; J2543; J3490; J7060; J7120; Q9967